=== PATIENT | male | born 1995 | race Two or more races ===

== ENCOUNTER 2017-09-14 03:09 | Emergency (ER) | payer SELFPAY ==
[2017-09-14 03:33] VITALS: BP 156/2; PULSE 86; RESP 18; TEMP 98.4; O2SAT 98
--- NOTE | 2017-09-14 03:47 | ED PDOC ---
HPI: Psych/Substance Abuse Time Seen by Provider: 09/14/17 03:46 Chief Complaint (Nursing): Alcohol Ingestion ED Caveat: Intoxicated (Pt was of steady gait, clear speech and no signs of gross inebriation or intoxication; pt refused medical treatment, had no head injuries or other complaints. ) Past Medical History Vital Signs: Last Vital Signs Temp 98.4 F 09/14/17 03:17 Pulse 86 09/14/17 03:17 Resp 18 09/14/17 03:17 BP 156/2 H 09/14/17 03:17 Pulse Ox 98 09/14/17 03:17 - Family History Family History: States: No Known Family Hx - Allergies Allergies/Adverse Reactions: Allergies Allergy/AdvReac Type Severity Reaction Status Date / Time No Known Allergies Allergy Verified 09/14/17 03:17 - ECG O2 Sat by Pulse Oximetry: 98 Disposition - Clinical Impression Clinical Impression: Alcohol ingestion - Patient ED Disposition Is Patient to be Admitted: No - Disposition Disposition: Left W/O Being Seen Disposition Time: 03:47 Condition: GOOD Forms: [employer] (Hungarian)
== END 2017-09-14 04:16 | disposition left against medical advice (07) ==
LOC: H.ER 03:09
DX: F10.10 Alcohol abuse, uncomplicated (principal)